=== PATIENT | female | born 1970 | race Two or more races ===

== ENCOUNTER 2017-10-20 03:59 | Emergency (ER) | payer OTHER ==
[~2017-10-20] VITALS: Ht 170.2 cm; Wt 90.7 kg
[2017-10-20 04:16] VITALS: BP 174/119
[2017-10-20] MEDS ORDERED: ALPRAZOLAM 0.25 MG TABLET PO ONE (05:00)
[2017-10-20] MEDS ORDERED: ALPRAZOLAM 0.25 MG TABLET ONE (05:07)
== END 2017-10-20 05:35 | disposition home or self-care (01) ==
LOC: ER 04:01
DX: F41.9 Anxiety disorder, unspecified (principal); I10 Essential (primary) hypertension; Z88.1 Allergy status to other antibiotic agents
CPT/HCPCS: A4606; Z7610